=== PATIENT | male | born 1955 | race Caucasian/White ===

== ENCOUNTER 2018-11-11 04:49 | Emergency (ER) | payer OTHER ==
[2018-11-11 05:06] VITALS: TEMP 98.3
[2018-11-11 05:30] LABS: Anisocytosis Slight; Basophils % (A) 0 %; Eosinophils # (A) 0.2 k/uL (0-0.7); Eosinophils % (A) 1 %; HCT 41.4 % (39.0-53.0); HGB 13.8 gm/dL (13.0-17.5); Lymphocytes # (A) 2.2 k/uL (1.0-4.8); Lymphocytes % (A) 14 %; MCH 29.6 pg (25.0-35.0); MCHC 33.3 g/dL (31.0-37.0); MCV 88.9 fL (80.0-100.0); Mean Platelet Volume 8.3; Monocytes # (A) 0.8 k/uL (0-1.0); Monocytes % (A) 5 %; Neutrophils # (A) 12.9 k/uL (1.3-7.7); Neutrophils % (A) 79 %; Platelet Count 178 k/uL (150-450); RBC 4.65 m/uL (4.30-5.90); RDW 17.2 % (11.5-15.5); WBC 16.4 k/uL (3.8-10.6)
[2018-11-11 05:39] LABS: INR 0.9 (<1.2); Partial Thromboplastin Time 25.5 sec (22.0-30.0)
[2018-11-11 05:41] LABS: ALT 41 U/L (21-72); AST 84 U/L (17-59); African American GFR (CKD) >90 (>60 ml/min/1.73 sqM); Albumin 4.3 g/dL (3.5-5.0); Alkaline Phosphatase 79 U/L (38-126); Anion Gap 13 mmol/L; Blood Urea Nitrogen 9 mg/dL (9-20); Calcium 9.9 mg/dL (8.4-10.2); Carbon Dioxide 26 mmol/L (22-30); Chloride 99 mmol/L (98-107); Glucose 82 mg/dL (74-99); Magnesium 2.4 mg/dL (1.6-2.3); Potassium 3.4 mmol/L (3.5-5.1); Sodium 138 mmol/L (137-145); Total Bilirubin 0.7 mg/dL (0.2-1.3); Total Protein 7.1 g/dL (6.3-8.2)
--- NOTE | 2018-11-11 05:42 | XR ---
EXAM: XR Chest, 2 Views CLINICAL HISTORY: ITS.REASON XR Reason: Chest Pain TECHNIQUE: Frontal and lateral views of the chest. COMPARISON: None. FINDINGS: Lungs: Unremarkable. No consolidation. Pleural space: Unremarkable. No pneumothorax. Heart: Unremarkable. No cardiomegaly. Mediastinum: Unremarkable. Bones/joints: Compression deformities of lower thoracic vertebral bodies. Chronic appearing right lateral rib fractures. IMPRESSION: 1. No acute cardiopulmonary abnormality. 2. Compression deformities of lower thoracic vertebral bodies. Recommend correlation for point tenderness. Consider evaluation with MRI as clinically warranted.
[2018-11-11 06:30] VITALS: PULSE 101; RESP 20
[2018-11-11] MEDS ORDERED: HEPARIN SODIUM,PORCINE 5,000 UNIT/ML 1 ML VIAL IV ONE (06:33)
--- NOTE | 2018-11-11 06:33 | ED ---
Chest Pain HPI - General Chief Complaint: Chest Pain Stated Complaint: Chest Pain Source: patient, EMS Mode of arrival: EMS Limitations: no limitations - History of Present Illness Initial Comments: Messi is a 63-year-old male with history of alcohol abuse, hypertension him a cigarette smoking, chronic bronchitis who presents the emergency department today with multiple complaints. Patient reports that she's been feeling very anxious having a lot of palpitations. Patient reports that he can having some left-sided chest pain and discomfort. He contacted EMS. Patient describes the pain is in his left chest sharp worse with coughing or deep inspiration. 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 MD Complaint: chest pain -: hour(s) Onset: during rest Pain Location: substernal, left chest Pain Radiation: LUE Severity: moderate Quality: sharp Consistency: constant Improves With: nothing Worsens With: other (cough) Anginal Symptoms: dyspnea Other Symptoms: fever (subjective), palpitations Treatments Prior to Arrival: aspirin, oxygen - Related Data Allergies Allergy/AdvReac Type Severity Reaction Status Date / Time No Known Allergies Allergy Verified 11/11/18 05:17 Review of Systems ROS Statement: Those systems with pertinent positive or pertinent negative responses have been documented in the HPI. ROS Other: All systems not noted in ROS Statement are negative. EKG Findings - EKG Comments: EKG Findings:: EKG was obtained due to his complaint of chest pain and EKG obtained at 5:14 AM, rate as well for rhythm is sinus tachycardia there is a normal axis there are normal intervals, PA 1:30, QRS 76, QTC is [address] elevations, mild ST depressions in the lateral leads no evidence of ischemic acute infarction. General Exam - General Exam Comments Initial Comments: Physical Exam GENERAL: anxious appearing Unkempt appearance HENT: Normocephalic, Atraumatic. EYES: PERRL, EOMI PULMONARY: Unlabored respirations. No audible rales rhonchi or wheezing was noted. CARDIOVASCULAR: There is a regular rate and rhythm without any murmurs gallops or rubs. ABDOMEN: Soft and nontender with normal bowel sounds. SKIN: Skin is clear with no lesions or rashes and otherwise unremarkable. Ankle changes on hands consistent with cigarette smoking : Deferred NEUROLOGIC: Patient is alert and oriented x3. Moving all extremities spontaneously MUSCULOSKELETAL: Normal extremities with adequate strength and full range of motion. No lower extremity swelling or edema. No calf tenderness. PSYCHIATRIC: Anxious Limitations: no limitations Course Vital Signs 11/11/18 11/11/18 11/11/18 04:58 05:08 05:10 Temperature 98.3 F Pulse Rate 103 H 107 H 104 H Respiratory 14 20 20 Rate Blood Pressure 136/82 132/82 132/82 O2 Sat by Pulse 99 Oximetry 11/11/18 11/11/18 11/11/18 05:20 05:30 05:40 Temperature Pulse Rate 109 H 105 H Respiratory 15 15 Rate Blood Pressure 132/82 132/82 132/82 O2 Sat by Pulse Oximetry 11/11/18 11/11/18 11/11/18 05:50 06:00 06:10 Temperature Pulse Rate 103 H 99 101 H Respiratory 19 20 21 Rate Blood Pressure 132/82 132/82 120/81 O2 Sat by Pulse Oximetry 11/11/18 06:20 Temperature Pulse Rate 101 H Respiratory 20 Rate Blood Pressure 120/81 O2 Sat by Pulse Oximetry Chest Pain MDM - MDM The patient was seen and evaluated history was obtained from the patient and EMS 63-year-old gentleman history of hypertension, smoking, alcohol abuse presenting with left-sided chest pain. workup was initiated Labs with elevated Trop - Heparin and Nitrio were ordered Elevated mag EKG no infarction CXR unremarkable Patient care was discussed with Dr. Vincent who accepted admission, however patient then decided to leave. AGAINST MEDICAL ADVICE The patient has decided to leave against medical advice because he reports he has things to do and doesnt want to stay The patient has adequate capacity to make medical decisions. The patient refuses hospital admission and wants to be discharged. The risks have been explained to the patient, including worsening illness, permanent disability and or MASSIVE HEART ATTACK The benefits of workup/admission have also been explained, including the availability and proximity of nurses, physicians, monitoring, diagnostic testing, treatment and further evaluation by cardiology The patient was able to understand and state the risks and benefits of hospital admission. The patient the opportunity to ask questions about their medical condition. The patient was treated to the extent that they would allow and knows that they may return for care at any time. Critical Care Time Critical Care Time: Yes Total Critical Care Time: 30 Critical Care Time: Critical Care Time Critical care time was exclusive of separately billable procedures and treating other patients and teaching time. Critical care was necessary to treat or prevent imminent or life-threatening deterioration. Given the critical condition in which the patient arrived, the patient was immediately assessed by myself and the nurse, and cardiac monitoring initiated due to the potential for rapid decompensation of the patient's clinical condition. During the course of the patients stay, I spent a considerable amount of time at the bedside performing serial re-evaluations of the patient's hemodynamic and clinical status because of the recognized potential threat to life or limb in this condition. I then had a chance to review not only all of t he available current laboratory and radiographic studies obtained today, but I also reviewed old records available to me at the time. 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 Sequential vital signs were obtained. Disposition Clinical Impression: Chest pain, Elevated troponin Disposition: Left Against Medical Advice Condition: Stable Is patient prescribed a controlled substance at d/c from ED?: No Referrals: None,Stated [Primary Care Provider] - 1-2 days
[2018-11-11] MEDS ORDERED: LORazepam 1 MG TAB PO STA (06:36)
[2018-11-11] MEDS ORDERED: HEPARIN SOD,PORK IN 0.45% NACL 25,000 UNIT in 0.45% NACL 1 250ML.BAG IV SCH (06:45)
[2018-11-11] MEDS ORDERED: NITROGLYCERIN OINT 1 INCH/GM PACKET TOPICAL SCH (06:45)
[2018-11-11 07:21] VITALS: BP 136/75
[2018-11-12] MEDS ORDERED: ASPIRIN 325 MG TAB PO SCH (09:00)
== END 2018-11-11 07:30 | disposition left against medical advice (07) ==
LOC: EC 04:49
DX: R07.2 Precordial pain (principal); R79.89 Other specified abnormal findings of blood chemistry; R05 Cough; R00.2 Palpitations; R06.00 Dyspnea, unspecified; F17.210 Nicotine dependence, cigarettes, uncomplicated
CPT/HCPCS: 36415; 71046; 80053; 83735; 83880; 84484; 85025; 85610; 85730; 93005; 99285

== ENCOUNTER → 2020-08-25 | Outpatient (CLI) | payer OTHER ==
--- NOTE | 2020-08-25 12:51 | XR ---
Lumbar sacral spine HISTORY: Low back pain, sciatic pain 5 views of lumbosacral spine, no comparisons There is a mild spinal curvature. There is multilevel spondylosis. Lumbar vertebral bodies show prese rved height and bone mineralization. Sclerosis present in the posterior elements. Loss of disc height is present at intervertebral levels, vacuum phenomenon present at the lower lumbar levels, suspect t here may be transitional vertebral body or T12 without ribs. Atherosclerotic vascular calcifications are noted in the aortoiliac distribution, there is no evident spondylolysis. IMPRESSION: Degenerative disc disease and facet arthropathy. Additional findings above.
== END | disposition home or self-care (01) ==
LOC: RADXRMAIN 10:11
PROVIDERS: ATTEND Family Medicine
DX: M51.16 Intervertebral disc disorders with radiculopathy, lumbar region (principal); M47.26 Other spondylosis with radiculopathy, lumbar region
CPT/HCPCS: 72110

== ENCOUNTER 2021-09-19 01:25 | Emergency (ER) | payer OTHER, MEDICARE ==
[2021-09-19 01:36] VITALS: RESP 18; TEMP 98
[2021-09-19] MEDS ORDERED: KETOROLAC 15 MG/ML 1 ML VIAL IM STA (02:31)
--- NOTE | 2021-09-19 02:36 | ED ---
General Adult HPI - General Chief complaint: Back Pain/Injury Stated complaint: Back Pain Time Seen by Provider: 09/19/21 02:17 Source: patient, EMS, RN notes reviewed, old records reviewed - History of Present Illness Initial comments: 66-year-old male presents for evaluation of back pain, states this is chronic in nature. Denies any new injuries. Patient ambulatory in the emergency department. Denies bowel or bladder incontinence. Denies numbness or tingling to the legs. He states the pain is chronic and he is seen back specialist out of [facility]. He does admit to alcohol consumption today. He is requesting a pain shot for his chronic symptoms. - Related Data Previous Rx's Medication Instructions Recorded diazePAM [Valium] 5 mg PO TID PRN 3 Days #9 tab 07/26/21 Allergies Allergy/AdvReac Type Severity Reaction Status Date / Time No Known Allergies Allergy Verified 11/11/18 05:17 Review of Systems ROS Statement: Those systems with pertinent positive or pertinent negative responses have been documented in the HPI. ROS Other: All systems not noted in ROS Statement are negative. Past Medical History Past Medical History: Unable to Obtain Past Surgical History: Unable to Obtain Smoking Status: Current some day smoker Past Alcohol Use History: Heavy Past Drug Use History: Cocaine General Exam General appearance: alert, in no apparent distress Head exam: Present: atraumatic, normocephalic Eye exam: Present: normal appearance, PERRL ENT exam: Present: normal exam Neck exam: Present: normal inspection. Absent: tenderness, meningismus Respiratory exam: Present: normal lung sounds bilaterally. Absent: respiratory distress Cardiovascular Exam: Present: regular rate, normal rhythm GI/Abdominal exam: Present: soft. Absent: distended, tenderness Extremities exam: Present: normal inspection, normal capillary refill. Absent: pedal edema, calf tenderness Back exam: Present: normal inspection. Absent: vertebral tenderness Neurological exam: Present: alert, oriented X3, CN II-XII intact. Absent: motor sensory deficit Psychiatric exam: Present: agitated Skin exam: Present: warm, dry, intact. Absent: cyanosis, diaphoretic Course Vital Signs 09/19/21 09/19/21 01:26 04:35 Temperature 98.0 F Pulse Rate 86 101 H Respiratory 18 18 Rate Blood Pressure 151/99 102/79 O2 Sat by Pulse 96 95 Oximetry - Reevaluation(s) Reevaluation #1: 09/19/21 05:30 Patient feeling better and eager for discharge. Medical Decision Making - Medical Decision Making 66-year-old male with chronic back pain. Patient ambulatory with a nonfocal neurologic exam. He is somewhat intoxicated upon arrival. He is observed in the emergency department awaiting sobriety and ultimately discharged in stable condition. Disposition Clinical Impression: Chronic back pain Disposition: HOME SELF-CARE Condition: Fair Instructions (If sedation given, give patient instructions): Chronic Back Pain (DC) Is patient prescribed a controlled substance at d/c from ED?: No Referrals: None,Stated [Primary Care Provider] - 1-2 days Time of Disposition: 05:35
[2021-09-19 04:49] VITALS: BP 102/79; PULSE 101
== END 2021-09-19 05:33 | disposition home or self-care (01) ==
LOC: EC 01:25
DX: M54.9 Dorsalgia, unspecified (principal); G89.29 Other chronic pain; F17.200 Nicotine dependence, unspecified, uncomplicated
CPT/HCPCS: 99284; 96372; J1885

== ENCOUNTER 2021-09-19 06:37 | Emergency (ER) | payer MEDICARE, OTHER ==
[2021-09-19 06:46] VITALS: BP 160/99; PULSE 90; RESP 18; TEMP 97.6
--- NOTE | 2021-09-19 06:49 | ED ---
General Adult HPI - General Chief complaint: Recheck/Abnormal Lab/Rx Stated complaint: ETOH Time Seen by Provider: 09/19/21 06:39 Source: patient, EMS, RN notes reviewed Mode of arrival: EMS Limitations: no limitations - History of Present Illness Initial comments: This a 66-year-old male presents emergency department for possible back pain. Patient seen here earlier patient states he decided to leave prior to being discharged attempted to walk home but was unable to complete the walk. Patient stopped at work. Office for help. Patient was brought back to emergency department. Patient denies any acute changes. States is chronic back pain denies any bowel, bladder incontinence or retention. He does admit that he does abuse alcohol but he is currently soap. Patient denies being distracted no headache no dizziness no chest pain or shortness breath or focal weakness. Patient states he feels much better at this time. - Related Data Previous Rx's Medication Instructions Recorded diazePAM [Valium] 5 mg PO TID PRN 3 Days #9 tab 07/26/21 Allergies Allergy/AdvReac Type Severity Reaction Status Date / Time No Known Allergies Allergy Verified 09/19/21 06:47 Review of Systems ROS Statement: Those systems with pertinent positive or pertinent negative responses have been documented in the HPI. ROS Other: All systems not noted in ROS Statement are negative. Past Medical History Past Medical History: Unable to Obtain Past Surgical History: Unable to Obtain Smoking Status: Current some day smoker Past Alcohol Use History: Heavy Past Drug Use History: Cocaine General Exam Limitations: no limitations General appearance: alert, in no apparent distress Head exam: Present: atraumatic, normocephalic, normal inspection Eye exam: Present: normal appearance, PERRL, EOMI. Absent: scleral icterus, conjunctival injection, periorbital swelling ENT exam: Present: normal exam, normal oropharynx, mucous membranes moist Neck exam: Present: normal inspection, full ROM. Absent: tenderness, meningismus, lymphadenopathy Respiratory exam: Present: normal lung sounds bilaterally. Absent: respiratory distress, wheezes, rales, rhonchi, stridor Cardiovascular Exam: Present: regular rate, normal rhythm, normal heart sounds. Absent: systolic murmur, diastolic murmur, rubs, gallop, clicks GI/Abdominal exam: Present: soft, normal bowel sounds. Absent: distended, tenderness, guarding, rebound, rigid Extremities exam: Present: other (Lower extremity strength equal bilaterally, neurovascular intact patient is able to ambulate with no difficulty.) Back exam: Present: full ROM, tenderness, paraspinal tenderness. Absent: vertebral tenderness Neurological exam: Present: alert, oriented X3, CN II-XII intact, reflexes normal. Absent: motor sensory deficit Course Vital Signs 09/19/21 06:42 Temperature 97.6 F Pulse Rate 90 Respiratory 18 Rate Blood Pressure 160/99 O2 Sat by Pulse 99 Oximetry Medical Decision Making - Medical Decision Making Patient is an ongoing alcohol use, abuse, patient is chronic back pain and has no red flag symptoms. Patient is able to ambulate without difficulty. Patient's AAO4. Patient be discharged to [facility] to his home. Disposition Clinical Impression: Chronic back pain, Alcohol use Disposition: HOME SELF-CARE Condition: Stable Instructions (If sedation given, give patient instructions): Back Pain (ED) Additional Instructions: Please return to the Emergency Department if symptoms worsen or any other concerns. Is patient prescribed a controlled substance at d/c from ED?: No Referrals: None,Stated [Primary Care Provider] - 1-2 days Time of Disposition: 06:49
== END 2021-09-19 09:16 | disposition home or self-care (01) ==
LOC: EC 06:37
DX: G89.29 Other chronic pain (principal); M54.9 Dorsalgia, unspecified; F10.929 Alcohol use, unspecified with intoxication, unspecified; F17.200 Nicotine dependence, unspecified, uncomplicated; F14.90 Cocaine use, unspecified, uncomplicated; Y90.9 Presence of alcohol in blood, level not specified
CPT/HCPCS: 99283

== ENCOUNTER 2021-09-20 23:15 | Emergency (ER) | payer MEDICARE, OTHER ==
[2021-09-20 23:28] VITALS: TEMP 98
[2021-09-20] MEDS ORDERED: LORazepam 2 MG/ML INJ IV STA (23:49)
[2021-09-20] MEDS ORDERED: SODIUM CHLORIDE 0.9% 1,000 ML IV ONE (23:49)
--- NOTE | 2021-09-21 00:04 | ED ---
General Adult HPI - General Chief complaint: Chest Pain Stated complaint: Chest Pain Time Seen by Provider: 09/20/21 23:31 Source: patient Mode of arrival: ambulatory - History of Present Illness Initial comments: This patient is 66-year-old man who presents to be evaluated for constellation of symptoms that he identifies as anxiety attack. He states that it had started last night. He was feeling worse tonight so he called ambulance. The patient states he was somewhat short of breath, there was some chest tightness, and he was feeling very anxious. -: hour(s) Location: chest Radiation: non-radiation Quality: other Consistency: constant Improves with: none Worsens with: none Treatments Prior to Arrival: none - Related Data Previous Rx's Medication Instructions Recorded diazePAM [Valium] 5 mg PO TID PRN 3 Days #9 tab 07/26/21 LORazepam [Ativan] 1 mg PO TID 3 Days #9 tab 09/21/21 Allergies Allergy/AdvReac Type Severity Reaction Status Date / Time No Known Allergies Allergy Verified 09/20/21 23:28 Review of Systems ROS Statement: Those systems with pertinent positive or pertinent negative responses have been documented in the HPI. ROS Other: All systems not noted in ROS Statement are negative. Constitutional: Denies: fever, chills Respiratory: Reports: as per HPI, dyspnea. Denies: cough, wheezes Cardiovascular: Reports: as per HPI, chest pain. Denies: palpitations, dyspnea on exertion, orthopnea, edema Gastrointestinal: Denies: abdominal pain, nausea, vomiting Genitourinary: Denies: dysuria Musculoskeletal: Denies: back pain Skin: Denies: rash Neurological: Denies: headache, weakness Psychiatric: Reports: anxiety. Denies: depression, suicidal thoughts Past Medical History Past Medical History: Unable to Obtain Past Surgical History: Unable to Obtain Smoking Status: Current some day smoker Past Alcohol Use History: Heavy Past Drug Use History: Cocaine General Exam General appearance: alert, in no apparent distress Head exam: Present: atraumatic, normocephalic Eye exam: Present: normal appearance. Absent: scleral icterus, conjunctival injection Neck exam: Present: normal inspection, full ROM Respiratory exam: Present: normal lung sounds bilaterally. Absent: respiratory distress, wheezes, rales, rhonchi, stridor Cardiovascular Exam: Present: regular rate, normal rhythm, normal heart sounds. Absent: systolic murmur, diastolic murmur, rubs, gallop GI/Abdominal exam: Present: soft. Absent: distended, tenderness, guarding, re bound, rigid, mass Extremities exam: Present: normal inspection, normal capillary refill. Absent: pedal edema, calf tenderness Back exam: Present: normal inspection. Absent: CVA tenderness (R), CVA tenderness (L) Neurological exam: Present: alert Psychiatric exam: Present: anxious. Absent: homicidal ideation, suicidal ideation Skin exam: Present: warm, dry, intact, normal color. Absent: rash Course Vital Signs 09/20/21 09/21/21 09/21/21 23: 00:30 01:00 Temperature 98 F Pulse Rate 105 H 85 Respiratory 16 26 H 25 H Rate Blood Pressure 164/116 137/97 142/90 O2 Sat by Pulse 99 99 96 Oximetry 09/21/21 09/21/21 09/21/21 01:30 02:30 03:00 Temperature Pulse Rate 89 86 97 Respiratory 20 13 18 Rate Blood Pressure 131/86 141/103 136/86 O2 Sat by Pulse 98 97 96 Oximetry EKG Findings - EKG Results: EKG: sinus rhythm (Rate 88 bpm), normal axis, normal ST/T - Blocks, [place], Hypertrophy, ST Abn: Chamber hypertrophy or enlargement: only voltage criteria for left ventricular hypertrophy Medical Decision Making - Lab Data Result diagrams: 09/20/21 23:36 09/20/21 23:36 Lab Results 09/20/21 09/20/21 09/20/21 Range/Units 23:36 23:36 23:36 WBC 9.3 (3.8-10.6) k/uL RBC 3.97 L (4.30-5.90) m/uL Hgb 13.7 (13.0-17.5) gm/dL Hct 41.3 (39.0-53.0) % MCV 103.9 H (80.0-100.0) fL MCH 34.4 (25.0-35.0) pg MCHC 33.1 (31.0-37.0) g/dL RDW 13.2 (11.5-15.5) % Plt Count 148 L (150-450) k/uL MPV 9.0 Neutrophils % 76 % Lymphocytes % 13 % Monocytes % 8 % Eosinophils % 1 % Basophils % 1 % Neutrophils # 7.1 (1.3-7.7) k/uL Lymphocytes # 1.2 (1.0-4.8) k/uL Monocytes # 0.8 (0-1.0) k/uL Eosinophils # 0.1 (0-0.7) k/uL Basophils # 0.1 (0-0.2) k/uL Macrocytosis Slight PT 10.5 (9.0-12.0) sec INR 1.0 (<1.2) APTT 25.7 (22.0-30.0) sec Sodium 132 L (137-145) mmol/L Potassium 3.9 (3.5-5.1) mmol/L Chloride 95 L (98-107) mmol/L Carbon Dioxide 25 (22-30) mmol/L Anion Gap 12 mmol/L BUN 19 (9-20) mg/dL Creatinine 0.78 (0.66-1.25) mg/dL Est GFR (CKD-EPI)AfAm >90 (>60 ml/min/1.73 sqM) Est GFR (CKD-EPI)NonAf >90 (>60 ml/min/1.73 sqM) Glucose 107 H (74-99) mg/dL Calcium 9.1 (8.4-10.2) mg/dL Magnesium 1.8 (1.6-2.3) mg/dL Total Bilirubin 1.5 H (0.2-1.3) mg/dL AST 123 H (17-59) U/L ALT 74 H (4-49) U/L Alkaline Phosphatase 72 (38-126) U/L Troponin I (0.000-0.034) ng/mL Total Protein 7.8 (6.3-8.2) g/dL Albumin 4.5 (3.5-5.0) g/dL Amylase 37 (30-110) U/L Lipase 188 (23-300) U/L 09/20/21 09/21/21 Range/Units 23:36 03:06 WBC (3.8-10.6) k/uL RBC (4.30-5.90) m/uL Hgb (13.0-17.5) gm/dL Hct (39.0-53.0) % MCV (80.0-100.0) fL MCH (25.0-35.0) pg MCHC (31.0-37.0) g/dL RDW (11.5-15.5) % Plt Count (150-450) k/uL MPV Neutrophils % % Lymphocytes % % Monocytes % % Eosinophils % % Basophils % % Neutrophils # (1.3-7.7) k/uL Lymphocytes # (1.0-4.8) k/uL Monocytes # (0-1.0) k/uL Eosinophils # (0-0.7) k/uL Basophils # (0-0.2) k/uL Macrocytosis PT (9.0-12.0) sec INR (<1.2) APTT (22.0-30.0) sec Sodium (137-145) mmol/L Potassium (3.5-5.1) mmol/L Chloride (98-107) mmol/L Carbon Dioxide (22-30) mmol/L Anion Gap mmol/L BUN (9-20) mg/dL Creatinine (0.66-1.25) mg/dL Est GFR (CKD-EPI)AfAm (>60 ml/min/1.73 sqM) Est GFR (CKD-EPI)NonAf (>60 ml/min/1.73 sqM) Glucose (74-99) mg/dL Calcium (8.4-10.2) mg/dL Magnesium (1.6-2.3) mg/dL Total Bilirubin (0.2-1.3) mg/dL AST (17-59) U/L ALT (4-49) U/L Alkaline Phosphatase (38-126) U/L Troponin I 0.016 0.015 (0.000-0.034) ng/mL Total Protein (6.3-8.2) g/dL Albumin (3.5-5.0) g/dL Amylase (30-110) U/L Lipase (23-300) U/L Disposition Clinical Impression: Chest pain Disposition: HOME SELF-CARE Condition: Good Instructions (If sedation given, give patient instructions): Chest Pain (ED) Prescriptions: LORazepam [Ativan] 1 mg PO TID 3 Days #9 tab Is patient prescribed a controlled substance at d/c from ED?: No Referrals: None,Stated [Primary Care Provider] - 1-2 days Angus Zapata MD [STAFF PHYSICIAN] - 1-2 days
[2021-09-21 00:10] LABS: Basophils # (A) 0.1 k/uL (0-0.2); Basophils % (A) 1 %; Eosinophils # (A) 0.1 k/uL (0-0.7); Eosinophils % (A) 1 %; HCT 41.3 % (39.0-53.0); HGB 13.7 gm/dL (13.0-17.5); Lymphocytes # (A) 1.2 k/uL (1.0-4.8); Lymphocytes % (A) 13 %; MCH 34.4 pg (25.0-35.0); MCHC 33.1 g/dL (31.0-37.0); MCV 103.9 fL (80.0-100.0); Macrocytosis Slight; Monocytes # (A) 0.8 k/uL (0-1.0); Monocytes % (A) 8 %; Neutrophils # (A) 7.1 k/uL (1.3-7.7); Neutrophils % (A) 76 %; Platelet Count 148 k/uL (150-450); RBC 3.97 m/uL (4.30-5.90); RDW 13.2 % (11.5-15.5); WBC 9.3 k/uL (3.8-10.6)
[2021-09-21 00:13] LABS: ALT 74 U/L (4-49); AST 123 U/L (17-59); African American GFR (CKD) >90 (>60 ml/min/1.73 sqM); Albumin 4.5 g/dL (3.5-5.0); Alkaline Phosphatase 72 U/L (38-126); Amylase 37 U/L (30-110); Anion Gap 12 mmol/L; Blood Urea Nitrogen 19 mg/dL (9-20); Calcium 9.1 mg/dL (8.4-10.2); Carbon Dioxide 25 mmol/L (22-30); Chloride 95 mmol/L (98-107); Glucose 107 mg/dL (74-99); Lipase 188 U/L (23-300); Magnesium 1.8 mg/dL (1.6-2.3); Non-African American GFR(CKD) >90 (>60 ml/min/1.73 sqM); Potassium 3.9 mmol/L (3.5-5.1); Sodium 132 mmol/L (137-145); Total Bilirubin 1.5 mg/dL (0.2-1.3); Total Protein 7.8 g/dL (6.3-8.2)
[2021-09-21 00:14] LABS: Partial Thromboplastin Time 25.7 sec (22.0-30.0); Prothrombin Time 10.5 sec (9.0-12.0)
--- NOTE | 2021-09-21 00:54 | XR ---
EXAMINATION TYPE: XR chest 2V DATE OF EXAM: 09/20/2021 COMPARISON: 11/11/2018 HISTORY: Chest pain TECHNIQUE: FINDINGS: Heart is normal. Lungs are clear of consolidation. There are no hilar masses. There Is prob ably some COPD. Mediastinum within normal limits. There are chest leads. Bony thorax shows slight ant erior wedging of mid thoracic vertebra up to 20% with osteoporosis. IMPRESSION: COPD. Osteoporotic type thoracic compression fractures also present on old exam. No acute lung disease.
[2021-09-21 03:08] VITALS: RESP 18
[2021-09-21 04:21] VITALS: BP 128/86; PULSE 68
== END 2021-09-21 04:21 | disposition home or self-care (01) ==
LOC: EC 23:15
DX: R07.89 Other chest pain (principal); F17.200 Nicotine dependence, unspecified, uncomplicated
CPT/HCPCS: 99285; 96374; 96361; 36415 ×2; 93005; 80053; 82150; 83690; 83735; 84484 ×2; 85025; 85610; 85730; 71046; J2060